=== PATIENT | male | born 1970 | race Caucasian/White ===

== ENCOUNTER 2022-12-03 18:14 | Emergency (ER) | payer OTHER ==
--- OUTSIDE RECORDS SUMMARY | 2022-12-03 18:18 | XMS REPORT | Continuity of Care Document ---
:1970 Author Organization [facility] t Address [address] [facility] [address] [place] [id number] Care Team Providers Name Role Phone Carola BOO, Elver Menjivar Primary Care Physician Robert THAKUR, Melissa Berry Attending Clinician Unavailable Only, Ang Db Test Attending Clinician Unavailable Unknown, Attending Attending Clinician Unavailable Jasmin Rothman MD Attending Clinician AJSMIN ROTHMAN Attending Clinician Unavailable Doctor Unassigned, [place] Attending Clinician Unavailable JESUS GUTIERREZ Attending Clinician Unavailable Payers Payer Name Policy Type Policy Number Effective Date Expiration Date S ource [employer] [id number] 2021 00:00:00 Problems This patient has no known problems. Allergies, Adverse Reactions, Alerts Allergy Allergy Status Severity Reaction(s) Onset Inactive Treating Comm ents Source Name Type Date Date Clinician Ciproflo Propensi Active Unknown - 2018-02 Uni vers xacin ty to See comments 1-12 ity of adverse 00:00: [place] reaction 00 Medical s Branch Clindamy Propensi Active Unknown - 2018-02 Uni vers timothy ty to See comments 1-12 ity of adverse 00:00: [place] reaction 00 Medical s Branch Nitrofur Propensi Active Unknown - 2018-02 Uni vers antoin ty to See comments 1-12 ity of Monohyd/ adverse 00:00: [place] M-Cryst reaction 00 Medical s Branch Penicill Propensi Active Unknown - 2018-02 Uni vers in ty to See comments 1-12 ity of adverse 00:00: [place] reaction 00 Medical s Branch Tramadol Propensi Active Unknown - 2018-02 Uni vers ty to See comments 1-12 ity of adverse 00:00: [place] reaction 00 Medical s Branch CIPROFLO DRUG Active Unknown-Cmnt 2018- Un gudelia XACIN INGREDI 1-12 ity of 00:00: [place] 00 Medical Branch CLINDAMY DRUG Active Unknown-Cmnt 2018- Un gudelia TIMOTHY INGREDI -12 ity of 00:00: [place] [address] Medical Branch NITROFUR DRUG Active Unknown-Cmnt 2018- Un gudelia ANTOIN -12 ity of MONOHYD/ 00:00: [facility] 00 Medical Branch PENICILL DRUG Active Unknown-Cmnt 2018- Un gudelia IN INGREDI - ity of 00:00: [place] [address] Medical Branch TRAMADOL DRUG Active Unknown-Cmnt 2018- Un gudelia INGREDI -12 ity of 00:00: [place] [address] Medical Branch Social History Social Habit Start Date Stop Date Quantity Comments Source History SDOH [facility] Std [place] [facility] Drinks Branch History SDOH University o f Alcohol Binge [place] [facility] Branch History SDNM University o f Alcohol Comment [place] [facility] ical [facility] Tobacco use and 2019-01-06 2019-01-06 Smokeless tobacco Un iversity of exposure 00:00:00 00:00:00 non-user [facility] Alcohol intake 2019-01-06 2019-01-06 Lifetime University of 00:00:00 00:00:00 non-drinker [facility] (finding) Branch History SDOH 2019-01-06 2019-01-06 1 University o f Alcohol Frequency 00:00:00 00:00:00 [facility] edical [place] Sex Assigned At [birth year] Universit y of 00:00:00 00:00:00 [facility] Smoking Status Start Date Stop Date Source Never smoked tobacco [facility] Medications Ordered Filled Start Stop Current Ordering Indication Dosage Frequency Signature Comments Components Source Medication Medication Date Date Medication? Clinician (SIG) Name Name indomethaci 2018-02 Yes [id number] 25mg Take 1 Univers n 25 mg 2-11 capsule by ity of capsule 00:00: mouth 3 [place] [address] (three) Medical times Branch daily with meals. indomethaci 2018-02 Yes [id number] 25mg Take 1 Univers n 25 mg 2-11 capsule by ity of capsule 00:00: mouth 3 [place] (three) Medical times Branch daily with meals. indomethaci 2018-02 Yes [id number] 25mg Take 1 Univers n 25 mg 2-11 capsule by ity of capsule 00:00: mouth 3 [place] [address] (three) Medical times Branch daily with meals. omeprazole 2018-02 Yes 40mg Take 40 mg U nivers 40 mg 1-12 by mouth ity of capsule 13:53: daily. [address] Branch rosuvastati 2018-02 Yes 20mg Take 20 mg Univers n (CRESTOR) 1-12 by mouth ity of 20 mg 13:53: at [place] tablet 58 bedtime. [facility] Branch Fenofibrate 2018-02 Yes Take by Uni vers 150 mg 1-12 mouth. ity of capsule 13:53: [address] omeprazole 2018-02 Yes 40mg Take 40 mg U nivers 40 mg 1-12 by mouth ity of capsule 13:53: daily. [address] rosuvastati 2018-02 Yes 20mg Take 20 mg Univers n (CRESTOR) 1-12 by mouth ity of 20 mg 13:53: at [place] tablet 58 bedtime. Medical Branch Fenofibrate 2018-02 Yes Take by Uni vers 150 mg 1-12 mouth. ity of capsule 13:53: [address] omeprazole 2018-02 Yes 40mg Take 40 mg U nivers 40 mg 1-12 by mouth ity of capsule 13:53: daily. [address] rosuvastati 2018-02 Yes 20mg Take 20 mg Univers n (CRESTOR) 1-12 by mouth ity of 20 mg 13:53: at [place] tablet 58 bedtime. [facility] Branch Fenofibrate 2018-02 Yes Take by Uni vers 150 mg 1-12 mouth. ity of capsule 13:53: [address] Procedures Procedure Date / Time Performed Performing Clinician [facility] e ASSIGNMENT OF BENEFITS 2021-10-04 23:13:54 Doctor Unassigned, No [facility] Name [facility] Encounters Start End Encounter Admission Attending Care Care Encounter Source Date/Time Date/Time Type Type Clinicians Facility Department ID 2021-10-05 2021-10-05 Outpatient R [facility] [id number] Univers 19:00:00 19:00:00 ity of [facility] 2021-10-05 2021-10-05 Letter SOTERO Jones [id number] Univers 00:00:00 00:00:00 (Out) Melissa BACK [id number] it y of HOSPITAL [id number] [place] [phone] [facility] 019 Branch 2021-10-04 2021-10-04 Laboratory Only, Ang Db Test [facility] [id number] Univers 19:00:00 19:15:00 Only Unknown, Attending HEALTH [id number] ity of Jasmin Rothman [id number] [facility] [phone] [address] MEDICAL OFFICE BUILDING 2021-10-04 2021-10-04 Outpatient R LORNA [facility] [id number] Univers 19:00:00 19:00:00 JASMIN miller [facility] 2021-10-04 2021-10-04 Orders Doctor SOTERO [id number] Univers 00:00:00 00:00:00 Only Unassigned, WONG [id number] ity of [place] [facility] [id number] [place] [phone] [facility] 009 Branch 2019-11-09 2019-11-09 Outpatient R JESUS GUTIERREZ [facility] [id number] Univers 11:00:00 11:00:00 ity of [facility] Results This patient has no known results.
--- NOTE | 2022-12-03 20:05 | RAD REPORT ---
EXAM DESCRIPTION: CT - Stone Protocol - 12/03/2022 7:18 pm CLINICAL HISTORY: FLANK PAIN COMPARISON: No comparisons TECHNIQUE: Thin cut axial CT imaging of the abdomen and pelvis was performed without IV contrast. Mu ltiplanar reformats were generated and reviewed. All CT scans are performed using dose optimization technique as appropriate and may include automated exposure control or mA/KV adjustment according to patient size. FINDINGS: No suspicious findings in the lung bases. The liver, spleen, and pancreas show no suspicious findings. Gallbladder shows a single calcified gal lstone near the neck. Symmetric renal contour, without suspicious parenchymal findings within limits of noncontrast techniq ue. No evidence of hydroureteronephrosis. Nonobstructing right lower pole calculi, largest measures 5 millimeter. No dilated bowel loops or bowel wall thickening. Mild colonic diverticulosis. Appendix is unremarkabl e. No free air, free fluid or inflammatory stranding. No hernia, mass or bulky lymphadenopathy. The u rinary bladder is decompressed limiting evaluation. No suspicious bony findings. IMPRESSION: No acute intra-abdominal process. Nonobstructing right renal calculi the largest measuring 5 millimeter. Colonic diverticulosis.
[2022-12-03 20:34] LABS: Specific Gravity 1.021 (1.005-1.030); Urine Bacteria None Seen /HPF (<20); Urine Bilirubin NEGATIVE (Negative); Urine Blood 1+ (Negative); Urine Clarity Clear (Clear); Urine Color Light-Yellow (Yellow); Urine Crystals Unidentified Few /HPF (None Seen); Urine Glucose NEGATIVE (Negative); Urine Mucus Slight /HPF (None Seen); Urine Protein TRACE (Negative); Urine Urobilinogen 1+ (Normal); Urine pH 7.5 (5.0-7.0)
[2022-12-03 20:44] LABS: Absolute Lymphocytes (CBC) 1.8 K/uL (0.7-4.9); Hematocrit 47.2 % (39.6-49.0); Lymphocytes % 33.2 % (15.3-44.8); MCV 90.6 fL (80-100); MPV 7.5 fL (7.6-11.3); Platelets 201 thou/uL (152-406); RBC Red Blood Cell Count 5.21 M/uL (4.33-5.43)
[2022-12-03 21:02] LABS: Albumin 3.5 g/dL (3.4-5.0); Bilirubin Total 0.6 mg/dL (0.2-1.0); Potassium 3.6 mEq/L (3.5-5.1)
--- NOTE | 2022-12-03 21:03 | ER ---
Nurse's Notes [facility] Name: Clarence Nair Age: 52 yrs Sex: Male : 1970 Arrival Date: 12/03/2022 Time: 18:14 Bed 25 Private MD: Diagnosis: Left flank pain Presentation: 12/03 18:44 Chief complaint: Patient states: "Left flank pain for the past 2 weeks, diarrhea, mb9 urinary frequency, and headache. Urgent care thought I had a kidney infection so they put me on a antibiotic that I don't know the name of" Pt denies N/V/fever. Coronavirus screen: Vaccine status: Patient reports being unvaccinated. Ebola Screen: No symptoms or risks identified at this time. Initial Sepsis Screen: Does the patient meet any 2 criteria? No. Patient's initial sepsis screen is negative. Does the patient have a suspected source of infection? No. Patient's initial sepsis screen is negative. Risk Assessment: Do you want to hurt yourself or someone else? Patient reports no desire to harm self or others. Onset of symptoms was December 03, 2022. 18:44 Method Of Arrival: Ambulatory mb9 18:44 Acuity: DORITA 3 mb9 Triage Assessment: 18:46 General: Appears uncomfortable, Behavior is calm, cooperative. Pain: Complains of pain mb9 in back Pain radiates to left flank. Neuro: Shah Agitation-Sedation Scale (RASS): 0 - Alert and Calm Level of Consciousness is awake, alert, obeys commands, Oriented to person, place, time, situation, Appropriate for age. Cardiovascular: Patient's skin is warm and dry. Respiratory: Airway is patent Respiratory effort is even, unlabored, Respiratory pattern is regular, symmetrical. GI: Reports diarrhea. : Reports urinary frequency. Derm: Skin is pink, warm \\T\\ dry. Historical: - Allergies: 18:39 PENICILLINS; mb9 18:39 Clindamycin; mb9 18:39 Bactrim; mb9 18:39 Ciprofloxacin; mb9 18:39 Macrobid; mb9 18:39 Zithromax; mb9 18:39 tramadol; mb9 - Home Meds: 18:39 carvedilol 6.25 mg oral tablet 1 tab every 12 hours [Active]; rosuvastatin 5 mg oral mb9 tablet [Active]; omeprazole 40 mg Oral capsule,delayed release (e.c.) [Active]; aspirin 81 mg Oral capsule [Active]; - PMHx: 18:39 Kidney stone; Hypercholesterolemia; mb9 - PSHx: 18:39 None; mb9 - Immunization history:: Adult Immunizations up to date. - Social history:: Smoking status: Patient denies any tobacco usage or history of. Screenin:15 [facility] ED Fall Risk Assessment (Adult) History of falling in the last 3 months, cm10 including since admission No falls in past 3 months (0 pts). [facility] ED Fall Risk Assessment (Adult) Confusion or Disorientation No (0 pts) Intoxicated or Sedated No (0 pts) Impaired Gait No (0 pts) Mobility Assist Device Used No (0 pt) Altered Elimination No (0 pt) Score/Fall Risk Level 0 - 2 = Low Risk Oriented to surroundings, Maintained a safe environment, Hourly rounding (assess needs \\T\\ fall precautionary measures) done. Abuse screen: Denies threats or abuse. Denies injuries from another. Nutritional screening: No deficits noted. Tuberculosis screening: No symptoms or risk factors identified. Assessment: 20:15 Reassessment: Patient appears in no apparent distress at this time. Patient and/or cm10 family updated on plan of care and expected duration. Pain level reassessed. Patient is alert, oriented x 3, equal unlabored respirations, skin warm/dry/pink. 21:21 Reassessment: Patient appears in no apparent distress at this time. Patient and/or cm10 family updated on plan of care and expected duration. Pain level reassessed. Patient is alert, oriented x 3, equal unlabored respirations, skin warm/dry/pink. Patient denies pain at this time. Patient states feeling better. Patient states symptoms have improved. Vital Signs: 18:44 BP 149 / 93; Pulse 91; Resp 18; Temp 97.9; Pulse Ox 97% on R/A; Weight 108.86 kg; mb9 Height 5 ft. 10 in. ; Pain 10/10; 20:30 BP 133 / 89; Pulse 84; Resp 16 S; Pulse Ox 93% on R/A; cm10 21:00 BP 138 / 84; Pulse 86; Resp 18 S; Pulse Ox 94% on R/A; cm10 18:44 Body Mass Index 34.44 (108.86 kg, 177.8 cm) mb9 18:44 Pain Scale: Adult mb9 ED Course: 18:20 Patient arrived in ED. im 18:31 [facility]y [facility]C [facility] kb 18:31 Alexandre Bertrand MD is Attending Physician. kb 18:46 Triage completed. mb9 18:46 Arm band placed on. mb9 19:19 CT Stone Protocol In Process Unspecified. EDMS 19:22 Sheryl Barksdale, RN is Primary Nurse. cm10 20:10 CBC with Diff Sent. cm10 20:10 CMP Sent. cm10 20:10 Lipase Sent. cm10 20:10 Urinalysis w/ reflexes Sent. cm10 20:11 Initial lab(s) drawn, by me, sent to lab. Urine collected: clean catch specimen, clear. cm10 Inserted saline lock: 22 gauge in left antecubital area, using aseptic technique. Blood collected. 20:15 Patient has correct armband on for positive identification. Bed in low position. Call cm10 light in reach. Side rails up X2. Provided Education on: ER process and procedures. . 21:20 No provider procedures requiring assistance completed. IV discontinued, intact, cm10 bleeding controlled, No redness/swelling at site. Pressure dressing applied. Administered Medications: No medications were administered Medication: 20:15 VIS not applicable for this client. cm10 Outcome: 21:03 Discharge ordered by . kb 21:20 Discharged to home ambulatory, cm10 21:20 Condition: good 21:20 Discharge instructions given to patient, Instructed on discharge instructions, follow up and referral plans. Demonstrated understanding of instructions, follow-up care, 21:21 Patient left the ED. cm10 Signatures: Dispatcher [employer] EDHI Juanita Bey FNP-C FNP-Ckb Breneman, Mary Beth RN RN mb9 Leslie Samuels Sheryl Barksdale, RN RN cm10
--- NOTE | 2022-12-03 21:03 | EDPHYS ---
Physician Documentation [facility] Name: Clarence Nair Age: 52 yrs Sex: Male : 1970 Arrival Date: 12/03/2022 Time: 18:14 Bed 25 Private MD: ED Physician Alexandre Bertrand HPI: 12/03 22:50 This 52 yrs old Male presents to ER via Ambulatory with complaints of flank pain. kb 22:50 The patient complains of pain in the left flank. The pain does not radiate. Onset: The kb symptoms/episode began/occurred 2 week(s) ago. Modifying factors: The symptoms are alleviated by nothing. the symptoms are aggravated by nothing. Associated signs and symptoms: Pertinent positives: diarrhea, headache, Pertinent negatives: fever. Severity of pain: At its worst the pain was moderate in the emergency department the pain is unchanged. The patient has not experienced similar symptoms in the past. The patient has not recently seen a physician. Pt reports left flank pain, diarrhea and headache for 2 weeks. Was seen at urgent care and given an antibiotic for UTI, but pain has persisted. Historical: - Allergies: 18:39 PENICILLINS; mb9 18:39 Clindamycin; mb9 18:39 Bactrim; mb9 18:39 Ciprofloxacin; mb9 18:39 Macrobid; mb9 18:39 Zithromax; mb9 18:39 tramadol; mb9 - Home Meds: 18:39 carvedilol 6.25 mg oral tablet 1 tab every 12 hours [Active]; rosuvastatin 5 mg oral mb9 tablet [Active]; omeprazole 40 mg Oral capsule,delayed release (e.c.) [Active]; aspirin 81 mg Oral capsule [Active]; - PMHx: 18:39 Kidney stone; Hypercholesterolemia; mb9 - PSHx: 18:39 None; mb9 - Immunization history:: Adult Immunizations up to date. - Social history:: Smoking status: Patient denies any tobacco usage or history of. ROS: 22:50 Constitutional: Negative for fever, chills, and weight loss, kb 22:50 Abdomen/GI: Positive for diarrhea, 22:50 Back: Positive for flank pain, on the left, 22:50 Neuro: Positive for headache, 22:50 All other systems are negative, Exam: 22:51 Constitutional: This is a well developed, well nourished patient who is awake, alert, kb and in no acute distress. Head/Face: Normocephalic, atraumatic. ENT: Moist Mucous membranes Cardiovascular: Regular rate Respiratory: Respirations even and unlabored. No increased work of breathing. Talking in full sentences Abdomen/GI: Soft, non-tender. No distention Skin: Warm, dry with normal turgor. Normal color. MS/ Extremity: Pulses equal, no cyanosis. Neurovascular intact. Full, normal range of motion. Neuro: Awake and alert, GCS 15, oriented to person, place, time, and situation. Moves all extremities. Normal gait. Vital Signs: 18:44 BP 149 / 93; Pulse 91; Resp 18; Temp 97.9; Pulse Ox 97% on R/A; Weight 108.86 kg; mb9 Height 5 ft. 10 in. ; Pain 10/10; 20:30 BP 133 / 89; Pulse 84; Resp 16 S; Pulse Ox 93% on R/A; cm10 21:00 BP 138 / 84; Pulse 86; Resp 18 S; Pulse Ox 94% on R/A; cm10 18:44 Body Mass Index 34.44 (108.86 kg, 177.8 cm) mb9 18:44 Pain Scale: Adult mb9 MDM: 18:34 Patient medically screened. kb 22:51 Differential diagnosis: nephrolithiasis, pyelonephritis, UTI, diverticulitis. Data kb reviewed: vital signs, nurses notes. 12/03 18:39 Order name: CBC with Diff; Complete Time: 20:53 mb9 12/03 18:39 Order name: CMP; Complete Time: 21:02 mb9 12/03 18:39 Order name: Lipase; Complete Time: 21:02 mb9 12/03 18:39 Order name: Urinalysis w/ reflexes; Complete Time: 20:42 mb9 12/03 18:39 Order name: CT Stone Protocol; Complete Time: 20:06 mb9 12/03 18:39 Order name: IV Saline Lock; Complete Time: 20:10 mb9 12/03 18:39 Order name: Labs collected and sent; Complete Time: 20:10 mb9 Administered Medications: No medications were administered Disposition: 12/04 10:36 Co-signature as Attending Physician, Alexandre Bertrand MD I reviewed the patient's care rt provided by the Advanced Practice Provider and agree with the diagnosis and treatment plan. Disposition Summary: 12/03/22 21:03 Discharge Ordered Notes: Location: Home kb Condition: Stable kb Diagnosis - Left flank pain kb Followup: kb - With: Emergency Department - When: As needed - Reason: Worsening of condition Followup: kb - With: Private Physician - When: 2 - 3 days - Reason: Recheck today's complaints, Continuance of care, Re-evaluation by your physician Discharge Instructions: - Discharge Summary Sheet kb - Flank Pain, Adult, [id number] kb Forms: - Medication Reconciliation Form kb - Thank You Letter kb - Antibiotic Education kb - Prescription Opioid Use kb - Patient Portal Instructions kb - Leadership Thank You Letter kb Signatures: Dispatcher [employer] EDJuanita Stephens, CHAPARRITA-Jamal PORTERP-Rozina Hameed, RN RN mb9 Alexandre Bertrand MD MD rt
[2022-12-03 23:09] VITALS: TEMP 97.9
[2022-12-03 23:20] VITALS: BP 138/84; O2SAT 94
== END 2022-12-03 21:21 | disposition home or self-care (01) ==
LOC: ER 18:14
DX: R10.32 Left lower quadrant pain (principal); R19.7 Diarrhea, unspecified; R51.9 Headache, unspecified; Z87.442 Personal history of urinary calculi; Z88.0 Allergy status to penicillin; Z88.1 Allergy status to other antibiotic agents; Z88.3 Allergy status to other anti-infective agents; Z88.5 Allergy status to narcotic agent
CPT/HCPCS: 36415; 74176; 76377; 80053; 81001; 83690; 85025; 99284